=== PATIENT | male | born 2000 | race Caucasian/White ===

== ENCOUNTER 2020-01-26 11:16 | Emergency (ER) | payer SELFPAY ==
[2020-01-26 11:17] VITALS: BP 161/92; PULSE 102; RESP 20; TEMP 37.2; O2SAT 100; BMI 23.0
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
[2020-01-26] MEDS: Ondansetron 4 MG/2 ML Vial IV (11:42)
[2020-01-26] MEDS: Morphine 4 MG/ML Syringe IV (11:43)
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
[2020-01-26 12:11] LABS: Absolute Lymphocyte Count 2.43 X10^3/uL (0.83-4.51); Absolute Neutrophil Count 5.1 X10^3/uL (2.0-7.7); Basophil# 0.08 X10^3/uL; Basophil% 0.9 % (0-1); Eosinophil# 0.34 X10^3/uL; Eosinophils% 3.7 % (0-5); Hematocrit 50.2 % (40-54); Hemoglobin 17.6 g/dL (13.0-16.5); Lymphocyte # 2.43 X10^3/ul (4.0); Lymphocyte % 26.8 % (19-41); Mean Corp Hgb Conc 35.1 g/dL (32-36); Mean Corpuscular Hgb 29.9 pg (27.0-32.0); Mean Corpuscular Volume 85.4 fL (80-94); Mean Platelet Vol. 9.5 fl (6.2-12.0); Monocyte# 0.83 X10^3/uL; Monocyte% 9.1 % (0-10); NRBC Flagged by Analyzer 0 % (0-5); Neutrophil # 5.05 X10^3/uL (2.7-7.7); Neutrophil % 55.6 % (47-70); Platelet Count 383 K/mm3 (150-450); RBC Distribution Width CV 12.7 % (11.6-14.6); RBC Distribution Width SD 39.1 fl (35.1-43.9); Red Blood Count 5.88 M/mm3 (4.6-6.2); White Blood Count 9.1 K/mm3 (4.4-11.0)
[2020-01-26 12:14] LABS: Anion Gap 10 (5-15); BUN 14 mg/dL (7-18); BUN/Creat Ratio 12.7 RATIO (10-20); Calcium,Total 9.1 mg/dL (8.5-10.1); Chloride 107 mmol/L (98-107); EST Glomerular Filtration Rate 90 mL/min (>60); Est Glom Filt Rate - Afr Amer 109 mL/min (>60); Estimated Creatinine Clearance 116.83 ml/min; Glucose 134 mg/dL (74-106); Potassium 3.3 mmol/L (3.5-5.1); Sodium Level 138 mmol/L (136-145)
[2020-01-26 12:21] LABS: International Normalized Ratio 1.1; Prothrombin Time (Protime)PT. 13.2 SECONDS (11.7-14.9)
[2020-01-26 12:35] LABS: Alcohol, Blood (Medical)-Serum < 3.0 mg/dL
[2020-01-26] MEDS: fentaNYL 100 MCG/2 ML Ampul 50 MCG IV (12:38)
[2020-01-26 13:33] VITALS: BP 145/82; PULSE 90; RESP 18; TEMP 37.2; O2SAT 99
== END 2020-01-26 13:28 | disposition short-term general hospital (02) ==
PROVIDERS: Emergency Provider Physician Assistant
DX: S32.019A Unspecified fracture of first lumbar vertebra, initial encounter for closed fracture (principal); R20.2 Paresthesia of skin; V48.0XXA Car driver injured in noncollision transport accident in nontraffic accident, initial encounter; Y93.I9 Activity, other involving external motion; Y92.410 Unspecified street and highway as the place of occurrence of the external cause; Y99.8 Other external cause status
CPT/HCPCS: 72128; 72131; 73630; 80048; 80320; 85025; 85610; 96374; 96375; 99285; A4216; G0480; J2405

== ENCOUNTER 2022-07-29 09:24 | Emergency (ER) | payer MEDICAID, SELFPAY ==
[2022-07-29 09:25] VITALS: BP 131/73; PULSE 95; RESP 16; TEMP 36.6; O2SAT 100
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
[2022-07-29] MEDS: Ondansetron 4 MG/2 ML Vial IV (09:58)
[2022-07-29] MEDS: Ketorolac 15 MG/ML Vial IV (09:59)
[2022-07-29] MEDS: Morphine 4 MG/ML Syringe IV (10:00)
== END 2022-07-29 10:42 | disposition home or self-care (01) ==
PROVIDERS: Emergency Provider Emergency Medicine; PCP Family Medicine; Visit Provider Emergency Medicine
DX: S39.012A Strain of muscle, fascia and tendon of lower back, initial encounter (principal); M54.30 Sciatica, unspecified side; X58.XXXA Exposure to other specified factors, initial encounter; Z87.81 Personal history of (healed) traumatic fracture
CPT/HCPCS: 96374; 96375; 99283; J7030; A4216; J2405